=== PATIENT | female | born 1995 | race Two or more races ===

== ENCOUNTER 2019-09-29 11:28 | Emergency (ER) | payer MEDICAID ==
[~2019-09-29] VITALS: Ht 162.6 cm; Wt 69.9 kg
[2019-09-29 11:45] VITALS: BP 120/71
[2019-09-29] MEDS ORDERED: BENADRYL CRE1 APPLIC TOPIC (11:50)
--- NOTE | 2019-09-29 11:51 | Emergency Room Report ---
History of Present Illness General Chief Complaint: Skin Rash/Abscess Source: Patient Present Illness HPI Disclaimer: Please note that this report is being documented using [employer] technology. This can lead to erroneous entry secondary to incorrect interpretation by the dictating instrument. HPI: 24-year-old female presents for evaluation of itchy rash in her thigh. She noted small papules on the inner sides of her thigh for the past few weeks. Itching but no bleeding, crusting, wheezing, weeping skin sloughing. Denies dysuria, hematuria, vaginal discharge, mucosal lesions or lesions to other areas of the body. No new detergents, clothes, exposure to chemicals. Denies fever, chills otherwise in her usual state of health. Has been using hydrocortisone cream [id number] without significant improvement. PMH: Denies PSH: Denies Allergies: Denies Social Hx: Denies Allergies: Coded Allergies: No Known Allergies (Unverified , 09/29/19) COVID-19 Screening Contact w/high risk pt: No Experienced COVID-19 symptoms?: No COVID-19 Testing performed PERSONNEL ASSOCIATE: No Patient History Last Menstrual Period: 08/02 Now: No Nursing Documentation-PMH Past Medical History: No Stated History Review of Systems All Other Systems: negative except mentioned in HPI Physical Exam Vital Signs Date Time Temp Pulse Resp B/P (MAP) Pulse Ox O2 Delivery O2 Flow Rate FiO2 09/29/19 11:36 99.1 78 18 113/77 (89) 99 Room Air General: Awake and alert, no acute distress HEENT: NC/AT. EOMI. Resp: Normal work of breathing Skin: Intact. Scheduled papules without surrounding edema or erythema, weeping or purulent drainage over the thighs. Nikolsky negative. MSK: Normal tone and bulk. Moving all extremities. No obvious deformity. Neuro: Awake and alert. Mentating appropriately Medical Decision Making Diagnostic Impression: Primary Impression: Rash and other nonspecific skin eruption ER Course 24-year-old female presents for scattered papules over the inner thighs. Most consistent with a atopic dermatitis or folliculitis. No evidence of infection. Only complaining of mild itching and will prescribe Benadryl cream and ice packs. Do not believe she requires antibiotics, advanced imaging or blood work at this time. Stable for outpatient follow-up with PMD/dermatology. Instructed to return with new or worsening symptoms. Last Vital Signs Date Time Temp Pulse Resp B/P (MAP) Pulse Ox O2 Delivery O2 Flow Rate FiO2 09/29/19 11:45 98.8 88 16 120/71 99 Room Air Disposition: HOME, SELF-CARE Condition: Stable Scripts Diphenhydramine HCl/Zinc Acet (Benadryl Itch Stopping Crm) 28.3 Gm Cream..g. 1 APPLIC TOPIC TID for 5 Days, #1 TUBE Prov: Andi Bonilla MD 09/29/19 Referrals: NOT CHOSEN [facility]/,REFERRING (PCP) [facility] Patient Instructions: Rash Additional Instructions: Please follow-up with your primary care doctor in the next 1 to 3 days to discuss this emergency department visit and for reevaluation. If you have any new or worsening symptoms please return to the emergency department for reevaluation. Please note that this report is being documented using [employer] technology. This can lead to erroneous entry secondary to incorrect interpretation by the dictating instrument. Andi Bonilla MD Sep 29, 2019 11:51
[2019-09-29 12:20] VITALS: BP 135/76
== END 2019-09-29 12:20 | disposition home or self-care (01) ==
LOC: EMR 11:47
DX: R21 Rash and other nonspecific skin eruption (principal)
CPT/HCPCS: 99281

== ENCOUNTER 2020-05-06 11:52 | Emergency (ER) | payer MEDICAID ==
[~2020-05-06] VITALS: Ht 165.1 cm; Wt 59.0 kg
[~2020-05-06 11:52] MED LIST: BENADRYL CRE1 APPLIC TOPIC
--- NOTE | 2020-05-06 12:22 | NUR ---
pt arrives to ER with complaints of sore throat x 1 week. throat is red and swollen. pt states pain with swallowing. pt denies history of strep
[2020-05-06 12:23] VITALS: BP 109/77
[2020-05-06] MEDS ORDERED: Lidocaine 2% Visc 15ml soln ORAL ONE (13:00)
[2020-05-06] MEDS ORDERED: Augmentin 875mg Tab ORAL ONE (13:00)
[2020-05-06] MEDS ORDERED: LIDOCAINE20 MG/1 M1 MM (13:22)
[2020-05-06] MEDS ORDERED: AUGMENTIN 875-1 EAC1 ORAL (13:22)
[2020-05-06 14:45] VITALS: BP 109/77
--- NOTE | 2020-05-07 16:22 | Emergency Room Report ---
History of Present Illness General Chief Complaint: Sore Throat Source: Patient Present Illness HPI Patient is a 24-year-old female presents for increased sore throat. Reports having onset of symptoms approximately 1 week ago. Had worsening sore throat over time. Denies any current fever. Reports having been able to swallow fluids. Reports having gradually worsening discomfort. Denies any other locations of pain. Denies feeling dizzy or lightheaded. Allergies: Coded Allergies: No Known Allergies (Unverified , 09/29/19) COVID-19 Screening Contact w/high risk pt: No Experienced COVID-19 symptoms?: No COVID-19 Testing performed PROFESSIONAL DEVELOPMENT DIRECTOR: No COVID-19 Screening: Negative COVID-19 Patient History Past Medical History: see triage record Reviewed Nursing Documentation: PMH: Agreed; PSxH: Agreed Nursing Documentation-PMH Hx Cardiac Problems: No Hx Hypertension: No Hx Pacemaker: No Hx Asthma: No Hx COPD: No Hx Diabetes: No Hx Cancer: No Hx Gastrointestinal Problems: No Hx Dialysis: No History Of Psychiatric Problem: No Hx Neurological Problems: No Hx Cerebrovascular Accident: No Hx Seizures: No Review of Systems All Other Systems: negative except mentioned in HPI Physical Exam Vital Signs Date Time Temp Pulse Resp B/P (MAP) Pulse Ox O2 Delivery O2 Flow Rate FiO2 05/06/20 12:19 99.7 96 18 109/77 (88) 100 Room Air General Appearance: well appearing, no apparent distress, alert, GCS 15 Head: normocephalic, atraumatic ENT: hearing grossly normal, other - Right-sided tonsillar exudate and hypertrophy, no uvular deviation, no trismus Neck: full range of motion, supple Respiratory: lungs clear, normal breath sounds, no respiratory distress, speaking full sentences Cardiovascular #1: normal inspection Gastrointestinal: normal inspection Musculoskeletal: no calf tenderness Neurologic: alert, motor strength/tone normal, relief docking master III-XII nml as tested, oriented x3, normal gait Psychiatric: normal inspection, mood/affect normal Skin: no rash Medical Decision Making Diagnostic Impression: Primary Impression: Acute tonsillitis ER Course Patient presents for sore throat. Differential diagnosis include was not limited to tonsillitis, peritonsillar abscess, mononucleosis among others. Urine test was ordered which apparently was not performed by the lab at this time. Patient was given Decadron and oral antibiotics. She was able to tolerate oral fluids. Does not appear to have any abscess at this time but was advised to have area rechecked in 2days due to possible progression. Patient advised to return if she had a worsening condition or other concerns patient given prescription for oral antibiotics and medications for pain. This medical record is generated with [employer] sales expert home theater software. There may be some sales expert home theater discrepancies related to use of this software Last Vital Signs Date Time Temp Pulse Resp B/P (MAP) Pulse Ox O2 Delivery O2 Flow Rate FiO2 05/06/20 14:45 99.6 106 18 109/77 96 Room Air Status: improved Disposition: HOME, SELF-CARE Condition: Stable Scripts Lidocaine HCl (Lidocaine HCl Viscous) 100 Ml Solution 10 MG MM FOUR TIMES A DAY, #100 MG Prov: Cirilo Guy MD 05/06/20 Amoxicillin/Potassium Clav 875-125* (AUGMENTIN 875-125 TABLET*) 1 Each Tablet 1 TAB ORAL TWICE A DAY, #14 TAB Prov: Cirilo Guy MD 05/06/20 Referrals: RADHA MOE,REFERRING (PCP) Patient Instructions: Tonsillitis Additional Instructions: Follow up for recheck in 1-2 days. Return if worse. Take antibiotics as prescribed. Cirilo Guy MD May 07, 2020 16:22
== END 2020-05-06 14:45 | disposition home or self-care (01) ==
LOC: EMR 14:04
DX: J03.90 Acute tonsillitis, unspecified (principal)
CPT/HCPCS: 96372; J1100; Z7502; 99283